=== PATIENT | female | born 1940 | race Caucasian/White ===

== ENCOUNTER 2022-02-22 18:26 | Emergency (ER) | payer BC, MEDICARE ==
[~2022-02-22] VITALS: Ht 157.5 cm; Wt 57.3 kg
[2022-02-22 18:31] VITALS: BP 220/96
--- NOTE | 2022-02-22 19:14 | NUR ---
not in lobby
== END 2022-02-22 21:34 | disposition left against medical advice (07) ==
LOC: ER 18:26
DX: S41.112A Laceration without foreign body of left upper arm, initial encounter (principal); Z53.21 Procedure and treatment not carried out due to patient leaving prior to being seen by health care provider; W22.8XXA Striking against or struck by other objects, initial encounter; Y93.89 Activity, other specified; Y92.89 Other specified places as the place of occurrence of the external cause; Y99.8 Other external cause status